=== PATIENT | female | born 1960 | race Caucasian/White ===

== ENCOUNTER → 2016-06-19 | Outpatient (CLI) | payer OTHER ==
[~2016-06-19] MED LIST: ASPIRIN81 M1 PO; BACTRIM DS 8001 TA1 PO; CEFTRIAXONE1 GM IV; CIPRO500 MG PO; CLARITIN10 MG PO; DESYREL100 MG PO; DIABETA2.5 MG PO; DIABETA5 MG PO; DUONEB 3 MG/3 ML3 M1 INH; Diabeta,Micron2.5 MG PO; FE-TABS325 MG PO; GABAPENTIN300 M1 PO; GLYBURIDE5 MG PO; HUMALOG100 U/ML SC; HYDROCODONE BIT1 T11 PO; K-DUR20 MEQ PO; LASIX20 MG PO; LEVAQUIN750 MG PO; Lovenox40 MG/0.4 SC; METFORMIN HCL1000 MG PO; METFORMIN500 MG PO; METOPROLOL SUCC50 M2 PO; MONISTAT DERM2% TP; MUCINEX ER600 MG PO; ONDANSETRON H2 MG/ML IV; PROTONIX40 MG PO; PROVENTIL0.09 MG/AC INH; TEMAZEPAM15 M1 PO; TRAZADONE HYDR100 MG PO; VANCOCIN1000 MG/25 IV; ZITHROMAX500 MG IV; ZOCOR80 MG PO; ZOSYN 3.373.375 GM/5 IV; Zofran4 MG PO
[2016-06-19 13:51] LABS: HEMATOCRIT 46.7 % (37.0-47.0); HEMOGLOBIN 14.9 g/dl (12.0-16.0); MEAN CORPUSCULAR HGB CONC 31.9 g/dl (33.0-37.0); PLATELET COUNT AUTOMATED 442 10*3/uL (130-400); RED BLOOD COUNT 5.13 10*6/uL (4.10-5.10); RED CELL DISTRI WIDTH 15.9 % (0-14.5); WHITE BLOOD COUNT 12.3 10*3/uL (4.8-10.8)
[2016-06-19 14:12] LABS: ALBUMIN 4.1 gm/dl (3.1-4.5); ALKALINE PHOSPHATASE 64 U/L (45-117); BILIRUBIN, TOTAL 0.7 mg/dl (0.2-1.0); BUN 13 mg/dl (7-24); CARBON DIOXIDE 30 mmol/L (21-32); CHLORIDE 106 mmol/L (98-107); CHOLESTEROL 207 mg/dL (<200); EST GLOM FILT AFRICAN AMERICAN > 60 ml/min; GLUCOSE 94 mg/dL (65-99); HDL CHOLESTEROL 58 mg/dl (40-60); LDL CHOLESTEROL 124 mg/dL (9-159); POTASSIUM 4.4 mmol/L (3.5-5.1); SGOT/AST 40 IU/L (3-35); SGPT/ALT 64 U/L (12-78); SODIUM 142 mmol/L (136-145); TOTAL PROTEIN 7.7 gm/dL (6.4-8.2); TRIGLYCERIDES 127 mg/dl (<150); VLDL CHOLESTEROL 25 mg/dL (6-40)
[2016-06-19 14:23] LABS: BASOPHIL # 0.1 10*3/uL (0-0.1); BASOPHILS 1 % (0-1); EOSINOPHIL # 0.5 10*3/uL (0-0.4); EOSINOPHILS 4 % (1-4); LYMPHOCYTE # 6.3 10*3/uL (1.3-4.4); MONOCYTE # 0.9 10*3/uL (0.1-1.0); NEUTROPHIL # 4.6 10*3/uL (2.3-7.9); NEUTROPHILS 37 % (47-73); TOTAL CELLS COUNTED 100 #CELLS
[2016-06-19 14:26] LABS: ACANTHOCYTES FEW; SPHEROCYTES RARE
[2016-06-19 14:27] LABS: PLATELET SUFFICIENCY HIGH (NORMAL)
== END | disposition home or self-care (01) ==
LOC: LAB 13:11
PROVIDERS: Internal Medicine
DX: E13.9 Other specified diabetes mellitus without complications (principal); E55.9 Vitamin D deficiency, unspecified